=== PATIENT | male | born 1955 | race African-American/Black ===

== ENCOUNTER 2017-04-26 05:56 | Day surgery (SDC) | payer OTHER ==
[2017-04-19 08:55] LABS: APPEARANCE,URINE CLEAR; BILIRUBIN,URINE NEGATIVE (NEGATIVE); GLUCOSE, URINE NEGATIVE (NEGATIVE); KETONES,URINE NEGATIVE (NEGATIVE); LEUKOCYTE ESTERASE,URINE NEGATIVE (NEGATIVE); NITRITE,URINE NEGATIVE (NEGATIVE); PROTEIN,URINE NEGATIVE (NEGATIVE); URINE SPECIFIC GRAVITY 1.018; UROBILINOGEN,URINE NEGATIVE mg/dL (<2.0)
[2017-04-19 08:58] LABS: HEMATOCRIT 43.7 % (37.9-51.0); HEMOGLOBIN 14.5 g/dL (13.5-17.0); HGB HCT DIFFERENCE -0.2; MEAN CORPUSCULAR HEMOGLOBIN 30.2 pg (27.0-33.4); MEAN CORPUSCULAR HGB CONC 33.2 g/dL (32.0-36.0); MEAN CORPUSCULAR VOLUME 91 fl (80-97); WHITE BLOOD COUNT 5.1 10^3/uL (4.0-10.5)
[2017-04-19 09:24] LABS: PROTHROMBIN TIME 13.3 SEC (11.4-15.4)
[2017-04-19 09:27] LABS: PARTIAL THROMBOPLASTIN TIME 28.1 SEC (23.5-35.8)
--- NOTE | 2017-04-19 11:01 | EKG REPORT ---
SEVERITY:- NORMAL ECG - SINUS RHYTHM : Confirmed by: Eder Silveira 19-Apr-2017 11:00:53
--- NOTE | 2017-04-19 11:03 | RADIOLOGY REPORT (SQ) ---
EXAM DESCRIPTION: CHEST PA/LATERAL COMPLETED DATE/TIME: 04/19/2017 9:31 am REASON FOR STUDY: PRE OP COMPARISON: None. EXAM PARAMETERS: NUMBER OF VIEWS: two views TECHNIQUE: Digital Frontal and Lateral radiographic views of the chest acquired. RADIATION DOSE: NA LIMITATIONS: none FINDINGS: LUNGS AND PLEURA: No opacities, masses or pneumothorax. No pleural effusion. MEDIASTINUM AND HILAR STRUCTURES: No masses or contour abnormalities. HEART AND VASCULAR STRUCTURES: Heart normal size. No evidence for failure. BONES: No acute findings. HARDWARE: None in the chest. OTHER: No other significant finding. IMPRESSION: NO SIGNIFICANT RADIOGRAPHIC FINDING IN THE CHEST. TECHNICAL DOCUMENTATION: JOB ID: [id number] [employer]- All Rights Reserved
[~2017-04-26 05:56] MED LIST: CEFAZOLIN 1 GM/D5W RTU 1 GM/50 ML RTUPB IV PRN; LACTATED RINGERS 1000 ML IV PRN
[2017-04-26 06:42] LABS: POTASSIUM 3.5 mmol/L (3.6-5.0)
[2017-04-26] MEDS ORDERED: SODIUM BICARBONATE 8.4% INJ 50 MEQ/50 ML DISP.SYRIN ONE (06:43)
[2017-04-26] MEDS ORDERED: LIDOCAINE 1% INJ-PF (10 MG/ML) 30 ML SDV ONE (06:43)
[2017-04-26] MEDS ORDERED: BUPIVACAINE HCL 0.25% /EPINEPHRINE INJ/PF 30 ML SDV ONE (06:44)
[2017-04-26] MEDS ORDERED: MIDAZOLAM 2 MG/2 ML INJ ONE (07:33)
[2017-04-26] MEDS ORDERED: FENTANYL CITRATE INJ/PF 250 MCG/5 ML AMPULE ONE (07:33)
[2017-04-26] MEDS ORDERED: MORPHINE SULFATE 10 MG/ML INJ ONE (07:33)
[2017-04-26] MEDS ORDERED: PROPOFOL INJ 200 MG/20 ML VIAL IV ONE (07:33)
[2017-04-26] MEDS ORDERED: PROMETHAZINE HCL INJ 25 MG/1 ML VIAL IV PRN ×2 (08:29)
[2017-04-26] MEDS ORDERED: MORPHINE SULFATE 10 MG/ML INJ IV PRN (08:29)
[2017-04-26] MEDS ORDERED: DIPHENHYDRAMINE HCL 50 MG/ML VIAL IV PRN (08:29)
[2017-04-26] MEDS ORDERED: FENTANYL CITRATE INJ/PF 100 MCG/2 ML AMPUL IV PRN ×3 (08:29)
[2017-04-26] MEDS ORDERED: MEPERIDINE HCL/PF INJ 25 MG/1 ML DISP.SYRIN IV PRN (08:29)
--- NOTE | 2017-04-26 09:19 | OPERATIVE REPORT E ---
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 OPERATION: Removal of spinal cord stimulator pulse generator and two electrodes under fluoroscopic guidance. SURGEON: KAITLIN VALDEZ M.D. INDICATIONS: Nonfunctioning system. ANESTHESIA: MAC. COMPLICATIONS: None. PROCEDURE: After obtaining informed consent, advising patient of the risks and benefits including serious neurological injury, bleeding, and infection, aggravation of pain, neurological injury, allergic reaction, and , he was taken to the operating room and placed comfortably in the prone position. MAC anesthesia was administered per anesthesia. He was then prepped with chlorhexidine with suitable drying time of three minutes followed by draping. Local anesthetic 1% lidocaine with bicarbonate and bupivacaine 0.25% with epinephrine were utilized and instilled in the mid lumbar thoracic incision as well as the right gluteal pocket incision over the pulse generator. X-ray was then utilized to identify the location of the wires and their anchors as well as the pulse generator. Once identified, surgical incisions were created at both sites. Blunt and sharp dissection were performed down to the appliances. Hemostasis was obtained with electrocautery as necessary. The pulse generator was delivered without difficulty. The wires and anchors were then delivered simultaneously following this. The wounds were inspected. Hemostasis was further addressed as necessary. The wounds were then irrigated copiously with Betadine-containing irrigation solution. They were then closed with inverted vertical mattress sutures using 3-0 Polysorb followed by Dermabond tape and cement. Telfa dressings followed by sponge dressings. Tegaderms were then placed over this. He was then taken to the PACU for further postoperative care and monitoring. DICTATING PHYSICIAN: KAITLIN VALDEZ M.D. [id number] PHY#: [id number] ID: [id number] JOB#: [id number] ACCT: [id number] cc:KAITLIN VALDEZ M.D. >
[2017-04-26] MEDS ORDERED: ONDANSETRON HCL INJ/PF 4 MG/2 ML SDV IV PRN (09:31)
[2017-04-26] MEDS ORDERED: OXYCODONE-ACETAMINOPHEN 5-325 MG TABLET PO PRN (09:31)
--- NOTE | 2017-04-26 12:28 | RADIOLOGY REPORT (SQ) ---
EXAM DESCRIPTION: SPINE SINGLE VIEW; NO CHG FLUORO COMPLETED DATE/TIME: 04/26/2017 11:03 am REASON FOR STUDY: SPINAL STIMULATOR REMOVAL G89.4 CHRONIC PAIN SYNDROME COMPARISON: None. FLUOROSCOPY TIME: Less than 10 seconds 3 C-arm images saved to PACS. TECHNIQUE: Intra-operative images acquired during surgical procedure to evaluate progress. NUMBER OF IMAGES: Cine fluoroscopic images. LIMITATIONS: None. FINDINGS: Imaging and fluoro during neurostimulator lead removal by Dr. Potts. Please see the op erative report for further details IMPRESSION: Intra procedural imaging and fluoro COMMENT: Quality ID [id number]: Final reports for procedures using fluoroscopy that document radiation exp osure indices, or exposure time and number of fluorographic images (if radiation exposure indices are not available) Please consult full operative report of the attending physician for description of the procedure. TECHNICAL DOCUMENTATION: JOB ID: [id number] [employer]- All Rights Reserved
[2017-04-26 13:45] VITALS: BP 127/84
== END 2017-04-26 10:45 | disposition home or self-care (01) ==
LOC: OROUT 05:56
PROVIDERS: ATTEND Pain Medicine Interventional Pain Medicine
PROC: 0JPT0MZ Removal of Stimulator Generator from Trunk Subcutaneous Tissue and Fascia, Open Approach (ICD-10-PCS; 2017-04-26)
PROC: 00PU0MZ Removal of Neurostimulator Lead from Spinal Canal, Open Approach (ICD-10-PCS; principal; 2017-04-26 08:00)
DX: T85.112A Breakdown (mechanical) of implanted electronic neurostimulator of spinal cord electrode (lead), initial encounter (principal); Y83.1 Surgical operation with implant of artificial internal device as the cause of abnormal reaction of the patient, or of later complication, without mention of misadventure at the time of the procedure; G47.33 Obstructive sleep apnea (adult) (pediatric); E11.9 Type 2 diabetes mellitus without complications; Z79.84 Long term (current) use of oral hypoglycemic drugs
CPT/HCPCS: 93005; 36415 ×2; 82947; 84132; 85027; 85610; 85730; 81001; 71020; 72020; 93010; 63661; 63688; J2250; J3490 ×3; J0690; J3010; J2270; J2704; 300